=== PATIENT | female | born 1975 | race Caucasian/White ===

== ENCOUNTER 2022-10-19 11:00 | Outpatient (RCR) | payer MEDICARE, BC, MEDICAID, SELFPAY | END 2023-02-13 10:12 | disposition home or self-care (01) | PROVIDERS: Visit Provider Obstetrics & Gynecology | DX: G57.93 Unspecified mononeuropathy of bilateral lower limbs (principal); M79.18 Myalgia, other site; Z51.89 Encounter for other specified aftercare; M99.05 Segmental and somatic dysfunction of pelvic region | CPT/HCPCS: 97110; 97112; 97140; 97535 ==

== ENCOUNTER 2023-05-28 13:00 | Outpatient (RCR) | payer MEDICARE, OTHER, MEDICAID, SELFPAY | END 2023-09-25 23:59 | disposition home or self-care (01) | PROVIDERS: PCP Obstetrics & Gynecology; Visit Provider Obstetrics & Gynecology | DX: G57.93 Unspecified mononeuropathy of bilateral lower limbs (principal); Z51.89 Encounter for other specified aftercare | CPT/HCPCS: 97110; 97140; 97162; 97535 ==

== ENCOUNTER 2024-04-03 10:00 | Outpatient (RCR) | payer MEDICARE, BC, SELFPAY | END 2024-08-01 23:59 | disposition home or self-care (01) | PROVIDERS: PCP Obstetrics & Gynecology; Visit Provider Obstetrics & Gynecology | DX: M62.838 Other muscle spasm (principal); N94.89 Other specified conditions associated with female genital organs and menstrual cycle; G57.93 Unspecified mononeuropathy of bilateral lower limbs; M79.18 Myalgia, other site; R10.2 Pelvic and perineal pain; N32.81 Overactive bladder; Z51.89 Encounter for other specified aftercare | CPT/HCPCS: 97110; 97140; 97163; 97535 ==